=== PATIENT | female | born 1980 | race Caucasian/White ===

== ENCOUNTER → 2018-09-15 | Emergency (ER) | payer SELFPAY ==
[~2018-09-15] MED LIST: LEVALBUTEROL 1.25 MG/3 ML NEB ONE; METHYLPREDNISOLONE 125 MG INJ ONE
--- NOTE | 2018-09-15 15:58 | EKG ---
Test Date: 2018-09-15 Test Time: 15:23:03 Strip Picker: ANGELICA MEASUREMENT RESULTS: Intervals: Rate: 76 ID: [id number] QRSD: 80 QT: 392 QTc: 441 [place]: P: 64 ID: [id number] QRS: 89 T: 52 INTERPRETIVE STATEMENTS: Normal sinus rhythm Normal ECG No previous ECG available for comparison Electronically Signed On 09-15-18 15:57:42 BAIT PACKER by Bill Hernandez
[2018-09-15 17:36] LABS: ALT/SGPT 15 U/L (12-78); AST/SGOT 15 U/L (15-37); Albumin 2.9 g/dL (3.4-5.0); Alkaline Phosphatase 72 U/L (45-117); BUN Blood Urea Nitrogen 18 mg/dL (7-18); Bicarbonate 30 mmol/L (21-32); Bilirubin Direct < 0.1 mg/dL (0-0.2); Bilirubin Total 0.2 mg/dL (0.2-1.0); Glucose Level 97 mg/dL (74-106); Magnesium 2.5 mg/dL (1.8-2.4); NT PRO-BNP 59 pg/mL (<125); Potassium 3.4 mmol/L (3.5-5.1); Protein, Total 7.6 g/dL (6.4-8.2); Sodium Level 142 mmol/L (136-145); Troponin (Emerg Dept Use Only) < 0.02 ng/mL (0.0-0.045)
[2018-09-15 17:48] LABS: Urine Bacteria <20 /HPF (<20); Urine Culture Reflex Order NOT NEEDED; Urine Mucus 1+ /HPF (NONE SEEN); Urine RBC <5 /HPF (NONE SEEN)
[2018-09-15 18:13] LABS: Absolute Lymphocytes (CBC) 1.7 K/uL (0.7-4.9); Absolute Monocytes 0.6 K/uL (0.1-1.3); Basophils % 0.6 % (0-1.3); Eosinophils % 1.7 % (0-4.4); Hematocrit 30.9 % (36.0-45.0); Lymphocytes % 20.2 % (15.3-44.8); MPV 8.5 fL (7.6-11.3); Monocytes % 7.5 % (3.3-12.3); RBC Red Blood Cell Count 4.02 M/uL (3.86-4.86)
[2018-09-15 18:19] LABS: Protime INR 1.19
--- NOTE | 2018-09-15 18:29 | RAD REPORT ---
EXAM DESCRIPTION: CT - Chest For Pe Angio - 09/15/2018 6:07 pm CLINICAL HISTORY: Cough and shortness of breath COMPARISON: None. TECHNIQUE: Dynamically enhanced axial 3 mm thick images of the chest were obtained during administra tion of <100> mL Isovue 370 IV contrast. Coronal and oblique reconstruction images were generated and reviewed. Exam utilizes a protocol for optimal evaluation of pulmonary arterial tree. Maximum intensity projections 3D imaging was utilized All CT scans are performed using dose optimization technique as appropriate and may include automated exposure control or mA/KV adjustment according to patient size. FINDINGS: A pulmonary embolus is not seen. A thoracic aortic aneurysm is not noted. A pleural effusion is not seen. A pericardial effusion is not seen. Mild to moderate patchy opacities are present within the left lung. Mild right lower lobe opacities are seen. Moderate left and mild right hilar lymphadenopathy. Mild mediastinal lymphadenopathy IMPRESSION: Negative for pulmonary embolus Mild to moderate left and mild right pulmonary opacities consistent with pneumonia Bilateral hilar and mediastinal lymphadenopathy probably reactive in nature. Follow up CT chest in 3 months is recommended to assess stability/resolution
[2018-09-15 18:53] LABS: CKMB Creatine Kinase MB 1.3 ng/mL (0.3-3.6)
--- NOTE | 2018-09-15 18:54 | ER ---
Nurse's Notes [facility] Name: Lorena Sinclair Age: 38 yrs Sex: Female : 1980 Arrival Date: 09/15/2018 Time: 15:14 Bed 26 Private MD: Moe Coombs Diagnosis: Pneumonia, unspecified organism;Hypoxemia Presentation: 09/15 15:22 Presenting complaint: states: pt was sent by office for rule out PE, sg pt recently diagnosed with pneumonia on Thursday after having a diagnosis of the flu, pt reports increased SOB and difficulty breathing that started yesterday. Transition of care: patient was not received from another setting of care. Onset of symptoms was September 15, 2018. Risk Assessment: Do you want to hurt yourself or someone else? Patient reports no desire to harm self or others. Initial Sepsis Screen: Does the patient meet any 2 criteria? RR > 20 per min. Does the patient have a suspected source of infection? Yes: Other: Flu/Pneumonia diagnosis recently made. Care prior to arrival: None. 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 - Social history:: Smoking status: Patient/guardian denies using tobacco. - Ebola Screening: : Patient negative for fever greater than or equal to 101.5 degrees Fahrenheit, and additional compatible Ebola Virus Disease symptoms Patient denies exposure to infectious person Patient denies travel to an Ebola-affected area in the 21 days before illness onset No symptoms or risks identified at this time. Screenin:26 Abuse screen: Denies threats or abuse. Denies injuries from another. Nutritional sg screening: No deficits noted. Tuberculosis screening: No symptoms or risk factors identified. Never had TB. Fall Risk None identified. Assessment: 15:26 General: Appears in no apparent distress. uncomfortable, well groomed, well developed, sg well nourished, Behavior is calm, cooperative, appropriate for age. Pain: Denies pain. 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 Full function Gait is steady, Speech is normal, Facial symmetry appears normal. Cardiovascular: Heart tones S1 S2 present Capillary refill is brisk in bilateral fingers Patient's skin is warm and dry. Chest pain is denied. Respiratory: Reports shortness of breath at rest labored breathing Airway is patent Respiratory effort is even, labored, Respiratory pattern is symmetrical, tachypnea Breath sounds are clear bilaterally. the patient has mild shortness of breath. GI: No signs and/or symptoms were reported involving the gastrointestinal system. : No signs and/or symptoms were reported regarding the genitourinary system. EENT: No signs and/or symptoms were reported regarding the EENT system. Derm: Skin is intact, is healthy with good turgor, Skin is dry, Skin is pale, Skin temperature is warm. Musculoskeletal: No signs and/or symptoms reported regarding the musculoskeletal system. 15:35 Reassessment: Strict bed rest precautions implemented, pt and pt family stated sg understnading. 16:19 Reassessment: pt and pt family updated on POC and the need for a recollect blood sg specimen, pt spouse states " ok, I think that we just need a time out and to get leave from here and start a different process tomorrow, because we are only here for a CT from ." pt and pt spouse educated on the importance of serum blood results prior to CT being performed due to pt safety, pt and pt spouse educated on the risks of leaving with no o2 with room air readings of 87 percent with symptoms of shortness of breath. pt spouse and pt will discuss POC prior to recollect of blood samples and any more diagnostic testing or leaving AMA. will reassess situation with pt and pt spouse. 16:28 Reassessment: at bedside, updating pt and pt family on POC and need for sg specific testing prior to CT scan being performed, pt spouse states understanding, the blood will be recollected as ordered, awaiting CT scan at this time. 16:35 Reassessment: Patient appears in no apparent distress at this time. Patient and/or sg family updated on plan of care and expected duration. Pain level reassessed. Patient is alert, oriented x 3, equal unlabored respirations, skin warm/dry/pink. symptoms resolved with o2 via NC Patient states symptoms have improved. Respiratory: Airway is patent Respiratory effort is even, unlabored, Respiratory pattern is regular, symmetrical. Derm: Skin is pink, warm \\T\\ dry. 16:40 Reassessment: pt and pt spouse educated on the need for Blood cultures and Lactate, pt sg spouse reports " my mother was recently diagnosed with sepsis and was in the ICU, we don't think that those tests are necessary for us." pt educated, continues to refuse testing, no blood cultures or lactate obtained at this time. 17:20 Reassessment: Patient appears in no apparent distress at this time. Patient and/or sg family updated on plan of care and expected duration. Pain level reassessed. Patient is alert, oriented x 3, equal unlabored respirations, skin warm/dry/pink. pt spouse remains at bedside at this time. 18:27 Reassessment: Patient appears in no apparent distress at this time. Patient and/or sg family updated on plan of care and expected duration. Pain level reassessed. Patient is alert, oriented x 3, equal unlabored respirations, skin warm/dry/pink. Respiratory: Reports symptoms resolved with o2 via NC Airway is patent Respiratory effort is even, unlabored, Respiratory pattern is regular, symmetrical. Derm: Skin is pink, warm \\T\\ dry. 18:30 Reassessment: awaiting CT results at this time. sg 19:33 Reassessment: Patient and/or family updated on plan of care and expected duration. Pain tl3 level reassessed. Patient is alert, oriented x 3, equal unlabored respirations, skin warm/dry/pink. pt just finished taking neb treatment, Dr Dais at bedside for admission assessment. 20:00 Reassessment: No changes from previously documented assessment. Patient and/or family tl3 updated on plan of care and expected duration. Pain level reassessed. Patient is alert, oriented x 3, equal unlabored respirations, skin warm/dry/pink. pt is unsure about being admitted, discussing with family. Dr Dias and Dr Traylor both have spoken with pt about possible serious outcomes of not staying in the hospital. 21:00 Reassessment: No changes from previously documented assessment. Patient and/or family tl3 updated on plan of care and expected duration. Pain level reassessed. Patient is alert, oriented x 3, equal unlabored respirations, skin warm/dry/pink. pt still unsure of admit, Dr Traylor at bedside to answer additional questions. 21:40 Reassessment: pt has signed and initialed AMA forms stating that she indeed knows the tl3 risks of leaving against medical advice. Vital Signs: 15:24 BP 116 / 82; Pulse 76; Resp 24; Pulse Ox 87% on R/A; sg 15:30 Pulse Ox 95% on 2 lpm NC; sg 16:08 Temp 97.2; sg 16:40 Weight 82.55 kg (R); sg 18:18 BP 105 / 72; Pulse 72; Resp 17; Pulse Ox 97% on 2 lpm NC; iw 19:33 BP 128 / 66; Pulse 100; Resp 24; Pulse Ox 94% on 3 lpm NC; tl3 20:00 BP 126 / 76; Pulse 94; Resp 22; Pulse Ox 88% on 3 lpm NC; tl3 21:00 BP 116 / 64; Pulse 102; Resp 22; Pulse Ox 91% on 3 lpm NC; tl3 ED Course: 15:14 Patient arrived in ED. dl4 15:15 Moe Coombs MD is Private Physician. dl4 15:18 Roxana Rivera, RN is Primary Nurse. ca1 15:24 Triage completed. sg 15:26 Arm band placed on. sg 15:26 No provider procedures requiring assistance completed. Oxygen administration via nasal sg cannula \\T\\ 2L/min Response to oxygen therapy: symptoms improved. 15:28 George Machado MD is Attending Physician. kdr 15:30 EKG done, by plant technical specialist. reviewed by George Machado MD. dt2 16:00 Radiology exam delayed due to lab results not completed at this time. (BUN/Creatinine). jg6 16:37 Radiology exam delayed due to lab results not completed at this time. (BUN/Creatinine). jg6 16:40 Shayne Serna, ISMA is Primary Nurse. sg 17:18 Radiology exam delayed due to lab results not completed at this time. (BUN/Creatinine). jg6 18:[address] nj 18:06 CT completed. Patient tolerated procedure well. Patient moved back from CT. nj 18:07 CT Chest For PE Angio In Process Unspecified. EDMS 18:20 Notified ED physician of a critical lab result(s). D Dimer [id number]. sg 18:53 Orlin Oakes MD is Hospitalizing Provider. kdr 19:08 Primary Nurse role handed off by Shayne Serna, ISMA tl3 19:08 Sharlene Medina, ISMA is Primary Nurse. tl3 21:40 Patient has correct armband on for positive identification. Pulse ox on. NIBP on. tl3 21:40 IV discontinued, intact, bleeding controlled, No redness/swelling at site. Pressure tl3 dressing applied. Administered Medications: 18:56 Drug: LevaQUIN 750 mg {Note: pt has taken her own prescription medication as ordered by ERP .} Route: PO; 19:33 Follow up: Response: No adverse reaction tl3 18:56 Drug: Xopenex (3) 1.25 mg Route: Inhalation; sg 19:32 Drug: SOLU-Medrol 125 mg Route: IVP; Infused Over: 2 mins; Site: left antecubital; tl3 19:57 Follow up: Response: No adverse reaction tl3 Outcome: 18:53 Decision to Hospitalize by Provider. kdr 21:40 AMA AMA form signed tl3 21:40 Condition: unchanged 21:40 Demonstrated understanding of of leaving AMA 22:24 Patient left the ED. tl3 Signatures: Dispatcher [employer] EDMS Shayne Serna, George Robins RN, MD MD kdr Williams, Irene, RN RN iw Jordan, Nathan nj Lowrey, Tammy, RN RN tl3 Vivian Parker dt2 Gemma Changg6 Carlos Larsen dl4 Roxana Rivera RN RN ca1 Corrections: (The following items were deleted from the chart) 18:29 15:26 Respiratory: Reports shortness of breath at rest labored breathing Airway is sg patent Respiratory effort is even, unlabored, Respiratory pattern is regular, symmetrical, Breath sounds are clear bilaterally. the patient has mild shortness of breath sg 22:22 21:00 Reassessment: pt has signed and initialed AMA forms stating that she indeed knows tl3 the risks of leaving against medical advice tl3
--- NOTE | 2018-09-15 18:55 | EDPHYS ---
Physician Documentation [facility] Name: Lorena Sinclair Age: 38 yrs Sex: Female : 1980 Arrival Date: 09/15/2018 Time: 15:14 Bed 26 Private MD: Moe Coombs ED Physician George Machado HPI: 09/16 07:31 This 38 yrs old Female presents to ER via Ambulatory with complaints of kdr Shortness Of Breath. 07:31 The patient has shortness of breath at rest, with light activity. Onset: The kdr symptoms/episode began/occurred gradually, 1 week(s) ago. Duration: The symptoms are continuous, and are steadily getting worse. The patient's shortness of breath is aggravated by coughing, exertion, light activity, talking, walking, is alleviated by nothing. Associated signs and symptoms: Pertinent positives: non-productive cough, fever, nausea, Pertinent negatives: dizziness, hemoptysis, numbness in extremities. Severity of symptoms: At their worst the symptoms were mild moderate just prior to arrival, in the emergency department the symptoms are worse. The patient has not experienced similar symptoms in the past. The patient has been recently seen by a physician: The patient was sent from Dr. Coombs's office with concern for possible PE. 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 - Social history:: Smoking status: Patient/guardian denies using tobacco. - Ebola Screening: : Patient negative for fever greater than or equal to 101.5 degrees Fahrenheit, and additional compatible Ebola Virus Disease symptoms Patient denies exposure to infectious person Patient denies travel to an Ebola-affected area in the 21 days before illness onset No symptoms or risks identified at this time. ROS: 09/16 07:31 Constitutional: Negative for weight loss - the patient has had fever and chills (temp kdr earlier in the week was 101 - 102+ Eyes: Negative for injury, pain, redness, and discharge, ENT: Negative for injury, pain, and discharge, Neck: Negative for injury, pain, and swelling, Cardiovascular: Negative for chest pain, palpitations, and edema, Abdomen/GI: Negative for abdominal pain, nausea, vomiting, diarrhea, and constipation, Back: Negative for injury and pain, : Negative for injury, bleeding, discharge, and swelling, MS/Extremity: Negative for injury and deformity, Skin: Negative for injury, rash, and discoloration, Neuro: Negative for headache, weakness, numbness, tingling, and seizure activity. Psych: Negative for depression, anxiety, suicide ideation, homicidal ideation, and hallucinations, Allergy/Immunology: Negative for hives, rash, and allergies, Endocrine: Negative for neck swelling, polydipsia, polyuria, polyphagia, and marked weight changes, Hematologic/Lymphatic: Negative for swollen nodes, abnormal bleeding, and unusual bruising. Respiratory: Positive for cough, "sounds productive", dyspnea on exertion, shortness of breath, wheezing, Negative for hemoptysis, orthopnea, pleurisy. Exam: 07:31 Constitutional: This is a well developed, well nourished patient who is awake, alert, kdr and in mild distress. With any exertion the becomes more dyspneic and breathes with pursed lips Head/Face: Normocephalic, atraumatic. Eyes: Pupils equal round and reactive to light, extra-ocular motions intact. Lids and lashes normal. Conjunctiva and sclera are non-icteric and not injected. Cornea within normal limits. Periorbital areas with no swelling, redness, or edema. Neck: Trachea midline, no thyromegaly or masses palpated, and no cervical lymphadenopathy. Supple, full range of motion without nuchal rigidity, or vertebral point tenderness. No Meningismus. Chest/axilla: Normal chest wall appearance and motion. Nontender with no deformity. No lesions are appreciated. Cardiovascular: Regular rate and rhythm with a normal S1 and S2. No gallops, murmurs, or rubs. Normal PMI, no JVD. No pulse deficits. Abdomen/GI: Soft, non-tender, with normal bowel sounds. No distension or tympany. No guarding or rebound. No evidence of tenderness throughout. Back: No spinal tenderness. No costovertebral tenderness. Full range of motion. Skin: Warm, dry with normal turgor. Normal color with no rashes, no lesions, and no evidence of cellulitis. MS/ Extremity: Pulses equal, no cyanosis. Neurovascular intact. Full, normal range of motion. Neuro: Awake and alert, GCS 15, oriented to person, place, time, and situation. Cranial nerves II-XII grossly intact. Motor strength 5/5 in all extremities. Sensory grossly intact. Cerebellar exam normal. Normal gait. Psych: Awake, alert, with orientation to person, place and time. Behavior, mood, and affect are within normal limits. 07:31 Respiratory: mild respiratory distress is noted, moderate respiratory distress is noted, Respirations: labored breathing, that is mild, pursed lip breathing, that is mild, shallow respirations, tachypnea, that is mild, Breath sounds: decreased breath sounds, rhonchi, + upper airway congestion. wheezing: Vital Signs: 09/15 15:24 BP 116 / 82; Pulse 76; Resp 24; Pulse Ox 87% on R/A; sg 15:30 Pulse Ox 95% on 2 lpm NC; sg 16:08 Temp 97.2; sg 16:40 Weight 82.55 kg (R); sg 18:18 BP 105 / 72; Pulse 72; Resp 17; Pulse Ox 97% on 2 lpm NC; iw 19:33 BP 128 / 66; Pulse 100; Resp 24; Pulse Ox 94% on 3 lpm NC; tl3 20:00 BP 126 / 76; Pulse 94; Resp 22; Pulse Ox 88% on 3 lpm NC; tl3 21:00 BP 116 / 64; Pulse 102; Resp 22; Pulse Ox 91% on 3 lpm NC; tl3 MDM: 18:53 Patient medically screened. kdr 22:08 ED course: patient is patient and was admitted for hypoxia prior to my ps1 shift starting. I was advised by hospitalist that patient wanted to leave AMA. Patient is on 4L O2 and she does not have O2 at home. Discussed on multiple occasions that the patient was too sick to leave and explained risks and benefits witnessed by nurse and with Dr. Dias. Patient verbalized understanding and was able to understand completely with at bedside. He verbalized understanding the risks. Requested the patient write out understanding of risks and necessity for O2 supplementation and hospitalization. Patient decided to leave AMA on own accord. . 09/16 07:31 Data reviewed: vital signs, nurses notes, lab test result(s), EKG, radiologic studies. kdr Counseling: I had a detailed discussion with the patient and/or guardian regarding: the historical points, exam findings, and any diagnostic results supporting the discharge/admit diagnosis, lab results, radiology results, the need for further work-up and treatment in the hospital. Physician consultation: Moe Coombs MD regarding patient's condition. 09/15 15:29 Order name: Basic Metabolic Panel; Complete Time: 18:37 kdr 09/15 15:29 Order name: CBC with Diff; Complete Time: 18:37 kdr 09/15 15:29 Order name: LFT's; Complete Time: 18:37 kdr 09/15 15:29 Order name: Magnesium; Complete Time: 18:37 kdr 09/15 15:29 Order name: NT PRO-BNP; Complete Time: 18:37 kdr 09/15 15:29 Order name: PT-INR; Complete Time: 18:37 kdr 09/15 15:29 Order name: Troponin (emerg Dept Use Only); Complete Time: 18:37 kdr 09/15 15:57 Order name: Procalcitonin; Complete Time: 18:37 kdr 09/15 15:57 Order name: Ckmb; Complete Time: 19:45 kdr 09/15 15:57 Order name: CPK; Complete Time: 19:45 kdr 09/15 15:57 Order name: Lipase; Complete Time: 19:45 kdr 09/15 15:57 Order name: Ptt, Activated; Complete Time: 18:37 kdr 09/15 15:29 Order name: EKG; Complete Time: 15:29 kdr 09/15 15:29 Order name: Cardiac monitoring; Complete Time: 15:31 kdr 09/15 15:29 Order name: EKG - Nurse/Tech; Complete Time: 15:30 kdr 09/15 15:29 Order name: IV Saline Lock; Complete Time: 15:31 kdr 09/15 15:29 Order name: Labs collected and sent; Complete Time: 15:31 kdr 09/15 15:29 Order name: O2 Per Protocol; Complete Time: 15:31 kdr 09/15 15:57 Order name: Urine Microscopic Only; Complete Time: 18:37 kdr 09/15 15:57 Order name: CT Chest For PE Angio; Complete Time: 18:37 kdr 09/15 16:58 Order name: Urine Dipstick--Ancillary (enter results); Complete Time: 19:45 em1 09/15 16:58 Order name: Urine --Ancillary (enter results); Complete Time: 19:45 em1 09/15 17:10 Order name: D-Dimer; Complete Time: 18:37 sg 09/15 15:29 Order name: O2 Sat Monitoring; Complete Time: 15:31 kdr 09/15 15:57 Order name: Accucheck; Complete Time: 18:56 kdr 09/15 15:57 Order name: IV Saline Lock - Large Bore; Complete Time: 16:02 kdr 09/15 15:57 Order name: Urine Dipstick-Ancillary (obtain specimen); Complete Time: 16:02 kdr Administered Medications: 09/15 18:56 Drug: LevaQUIN 750 mg {Note: pt has taken her own prescription medication as ordered by ERP .} Route: PO; 19:33 Follow up: Response: No adverse reaction tl3 18:56 Drug: Xopenex (3) 1.25 mg Route: Inhalation; 19:32 Drug: SOLU-Medrol 125 mg Route: IVP; Infused Over: 2 mins; Site: left antecubital; tl3 19:57 Follow up: Response: No adverse reaction tl3 Disposition: 09/15/18 18:53 Hospitalization ordered by Orlin Oakes for Observation. Preliminary diagnosis are Pneumonia, unspecified organism, Hypoxemia. - Bed requested for Telemetry/MedSurg (observation). - Status is Observation. tl3 - Condition is Fair. - Problem is new. - Symptoms have improved. UTI on Admission? No Signatures: Dispatcher [employer] EDMS Shayne Seran, ISMA ASHBY George Machado MD MD kdr Cat Chang RN RN Dominic Traylor MD MD [facility] Sharlene Medina, RN RN tl3 Corrections: (The following items were deleted from the chart) 16:18 15:29 Chest Single View+RAD.RAD.BRZ ordered. EDMS EDMS 18:35 15:58 BLOOD CULTURE*+BA.LAB.BRZ ordered. EDMS EDMS 18:35 15:58 LACTATE+C.LAB.BRZ ordered. EDMS EDMS 18:54 18:53 Hospitalization Ordered by Orlin Oakes MD for Observation. Preliminary diagnosis kdr is Pneumonia, unspecified organism; Hypoxemia. Bed requested for Telemetry/MedSurg (observation). Status is Observation. Condition is Fair. Problem is new. Symptoms have improved. UTI on Admission? No. kdr 21:13 18:54 09/15/2018 18:53 Hospitalization Ordered by Orlin Oakes MD for Observation. cg Preliminary diagnosis is Pneumonia, unspecified organism; Hypoxemia. Bed requested for Telemetry/MedSurg (observation). Status is Observation. Condition is Fair. Problem is new. Symptoms have improved. UTI on Admission? No. kdr 22:24 21:13 09/15/2018 18:53 Hospitalization Ordered by Orlin Oakes MD for Observation. tl3 Preliminary diagnosis is Pneumonia, unspecified organism; Hypoxemia. Bed requested for Telemetry/MedSurg (observation). Status is Observation. Condition is Fair. Problem is new. Symptoms have improved. UTI on Admission? No. cg
[2018-09-15 19:23] LABS: Urine Blood TRACE (NEG); Urine Glucose NEGATIVE (NEG); Urine Protein 1+ (NEG); Urine Specific Gravity >1.030 (1.005-1.030); Urine pH 5.5 (5.0-7.0)
== END ==
LOC: ER 15:14 → ERHOLD 20:50 → UNDOADMIN 20:50
DX: J18.9 Pneumonia, unspecified organism (principal)
CPT/HCPCS: 36415; 71275; 80048; 80076; 81003; 81015; 81025; 82550; 82553; 83690; 83735; 83880; 84145; 84484; 85025; 85379; 85610; 85730; 93005; 96374; 99285; J2930; Q9967